=== PATIENT | male | born 1990 | race Caucasian/White ===

== ENCOUNTER 2019-02-11 21:20 | Inpatient (IN) | payer OTHER ==
[~2019-02-11] VITALS: Ht 175.3 cm; Wt 54.5 kg
[2019-02-11] MEDS ORDERED: CEFUROXIME500 MG PO (21:31)
[2019-02-11] MEDS ORDERED: STERAPRED DS 1010 MG PO (21:31)
[2019-02-11] MEDS ORDERED: HYDROXYZINE HCL10 MG PO (21:32)
[2019-02-11] MEDS ORDERED: MEDROL4 MG PO (21:32)
[2019-02-11 22:52] LABS: HEMATOCRIT 47.5 % (42.0-54.0); HEMOGLOBIN 16.8 g/dL (13.5-17.5); MCH 30.7 pg (26.0-34.0); MCHC 35.4 g/dL (31.0-37.0); MCV 86.7 fL (80.0-100.0); MEAN PLATELET VOLUME 8.5 fL (7.4-10.4); PLATELET COUNT 295 10x3/uL (130-400); RBC 5.48 10x6/uL (4.20-6.10); RDW 14.4 % (11.5-14.5); WBC 28.3 10x3/uL (4.8-10.8)
[2019-02-11 23:06] LABS: ALBUMIN 3.6 g/dL (3.4-5.0); ALKALINE PHOSPHATASE 66 U/L (46-116); ALT (SGPT) 104 U/L (10-68); BILIRUBIN - TOTAL 0.44 mg/dL (0.2-1.3); C-REACTIVE PROTEIN 1.5 mg/dL (0.0-0.9); CALC OSMOLALITY 270 mosm/kg (275-300); CALCIUM 9.2 mg/dL (8.5-10.1); CARBON DIOXIDE 25.9 mmol/L (21.0-32.0); CHLORIDE - SERUM 100 mmol/L (98-107); CREATININE - SERUM 0.9 mg/dL (0.6-1.3); GLUCOSE 99 mg/dL (74-106); POTASSIUM - SERUM 4.5 mmol/L (3.5-5.1); PROTEIN - SERUM 7.7 g/dL (6.4-8.2); SODIUM 136 mmol/L (136-145); UREA NITROGEN 11 mg/dL (7-18); eGFR NON AFRICAN AMERICAN > 90 mL/min (90-120)
[2019-02-11 23:24] VITALS: BP 128/82; BMI 17.9
[2019-02-11 23:25] LABS: EOSINOPHILS 27 % (0-7); LYMPHOCYTES 12 % (15-50); MONOCYTES 4 % (2-11); NEUTROPHILS 54 % (40-80); PLATELET ESTIMATE NORMAL
--- NOTE | 2019-02-11 23:30 | NUR ---
RECIEVED REPORT FROM ANGEL GRIGGS RN. PT ARRIVED ON WHEELCHAIR. AAOX4, 20G R.A.C NS BOLUS INFUSING. RASH ON PT FACE, ARM, TORSO, AND LEGS. INITIAL VS, BP128/82, HR 98, SPO2 99, R 20, T 98.1. PT IS A GOOD HISTORIAN. INITIAL ASSESSMENT COMPLETED. MOUTH MOISTURIZER PROVIDED PER PT REQUEST. PT CURRENTLY RESTING IN BED. DENIES ANY FURTHER NEEDS AT THIS TIME. WILL CPOC. CL IN REACH, BED IN LOW, SR UP X2.
[2019-02-11 23:53] LABS: ERYTHROCYTE SEDIMENTATION RATE 48 mm/hr (0-15)
[2019-02-11 23:55] VITALS: BP 116/85
[2019-02-12 03:25] VITALS: BP 120/61
[2019-02-12 09:00] VITALS: BP 115/61
[2019-02-12 12:10] VITALS: BMI 17.8
[2019-02-12 12:25] VITALS: BP 112/67
[2019-02-12 15:56] VITALS: Ht 175.3 cm; Wt 54.5 kg
[2019-02-12 18:04] VITALS: BP 93/60
[2019-02-12 20:00] VITALS: BP 119/67
[2019-02-13] VITALS: BP 129/68
[2019-02-13 04:00] VITALS: BP 120/64
--- NOTE | 2019-02-13 04:29 | NUR ---
I have reviewed this patient and I concur with the Shift Assessment completed by the Licensed Practical Nurse today this shift.
[2019-02-13 06:38] LABS: HEMATOCRIT 43.5 % (42.0-54.0); HEMOGLOBIN 15.3 g/dL (13.5-17.5); MCH 30.1 pg (26.0-34.0); MCHC 35.2 g/dL (31.0-37.0); MCV 85.5 fL (80.0-100.0); MEAN PLATELET VOLUME 8.5 fL (7.4-10.4); PLATELET COUNT 279 10x3/uL (130-400); RBC 5.09 10x6/uL (4.20-6.10); RDW 14.4 % (11.5-14.5); WBC 31.4 10x3/uL (4.8-10.8)
[2019-02-13 07:09] LABS: ALKALINE PHOSPHATASE 57 U/L (46-116); ALT (SGPT) 91 U/L (10-68); BILIRUBIN - TOTAL 0.29 mg/dL (0.2-1.3); CALC OSMOLALITY 275 mosm/kg (275-300); CALCIUM 8.5 mg/dL (8.5-10.1); CARBON DIOXIDE 26.7 mmol/L (21.0-32.0); CHLORIDE - SERUM 103 mmol/L (98-107); CREATININE - SERUM 0.8 mg/dL (0.6-1.3); GLUCOSE 108 mg/dL (74-106); POTASSIUM - SERUM 4.6 mmol/L (3.5-5.1); PROTEIN - SERUM 6.2 g/dL (6.4-8.2); SODIUM 138 mmol/L (136-145); UREA NITROGEN 10 mg/dL (7-18); eGFR NON AFRICAN AMERICAN > 90 mL/min (90-120)
[2019-02-13 07:47] VITALS: BP 117/66
[2019-02-13 08:49] LABS: EOSINOPHILS 28 % (0-7); LYMPHOCYTES 9 % (15-50); MONOCYTES 2 % (2-11); NEUTROPHILS 54 % (40-80); PLATELET ESTIMATE NORMAL
[2019-02-13 08:51] LABS: CRENATED CELLS OCC; ROULEAUX OCC
[2019-02-13 12:18] VITALS: BP 110/59
--- NOTE | 2019-02-13 19:10 | NUR ---
SITTING UP IN ROOM NEAR THE WINDOW. DENIES NEEDS AT THIS TIME LCTA PT ALERT AND ABLE TO MOVE AROUND ROOM IV SL ...BED IS LOCKED I REMINDED PT OF CALL LIGHT FOR NEEDS....REDENED SKIN ON CHEST ARMS AND BACK AND ALSO FACE...FACE IS ALSO SCABBED PT STATES THERE IS "NO REAL PAIN"
[2019-02-13 19:26] VITALS: BP 155/59
[2019-02-13 20:00] VITALS: BP 119/74
[2019-02-14] VITALS: BP 111/64
[2019-02-14 04:00] VITALS: BP 124/55
[2019-02-14 06:52] LABS: CALC OSMOLALITY 274 mosm/kg (275-300); CALCIUM 8.8 mg/dL (8.5-10.1); CARBON DIOXIDE 25.1 mmol/L (21.0-32.0); CHLORIDE - SERUM 101 mmol/L (98-107); CREATININE - SERUM 0.6 mg/dL (0.6-1.3); GLUCOSE 119 mg/dL (74-106); MAGNESIUM - SERUM 2.2 mg/dL (1.8-2.4); POTASSIUM - SERUM 4.5 mmol/L (3.5-5.1); SODIUM 137 mmol/L (136-145); eGFR NON AFRICAN AMERICAN > 90 mL/min (90-120)
[2019-02-14 06:53] LABS: BASOPHILS 0.4 % (0-2); EOSINOPHILS 31.1 % (0-7); HEMATOCRIT 43.6 % (42.0-54.0); HEMOGLOBIN 15.2 g/dL (13.5-17.5); IMMATURE GRANULOCYTES 1.1 % (0-5); LYMPHOCYTES 13.8 % (15-50); MCH 30.1 pg (26.0-34.0); MCHC 34.9 g/dL (31.0-37.0); MCV 86.3 fL (80.0-100.0); MEAN PLATELET VOLUME 8.9 fL (7.4-10.4); MONOCYTES 5.7 % (2-11); NEUTROPHILS 47.9 % (40-80); PLATELET COUNT 253 10x3/uL (130-400); RBC 5.05 10x6/uL (4.20-6.10); RDW 14.8 % (11.5-14.5); UREA NITROGEN 13 mg/dL (7-18); WBC 29.3 10x3/uL (4.8-10.8)
--- NOTE | 2019-02-14 08:00 | NUR ---
AM ROUNDS COMPLETED. INTRODUCED MYSELF TO PT PRIMARY RN FOR TODAYS SHIFT. PT IS A&O SITTING UP IN BED RESTING QUIETLY EATING BREAKFAST. PT HAS BODY RASH THAT LOOKS VERY PAINFUL BUT HE STATES HE IS FEELING "ALRIGHT" OVERALL. SHIFT ASSESSMENT COMPLETED. PT DENIES ANY CURRENT NEEDS AT THIS TIME. WILL CTM.
[2019-02-14 09:21] VITALS: BP 127/61
--- NOTE | 2019-02-14 11:27 | NUR ---
UNSURE DERMATOLOGY PLANS AND THE PROGRESS NOTE HAS BEEN LOST? EITHER WAY CANT BE FOUND, WAS GOING TO CALL THEM R/T PTS PAIN AND TIGHTNESS AND DRYNESS FROM [facility] TO SEE IF PT MAY BENEFIT FROM [facility]. DISCUSSED WITH AND SHE WILL TO DOC TO DOC FOR TRANSFER IF PT CAN BENEFIT FROM THEIR DER[facility] AND [facility]. DISCUSSED WITH PT AND HE JUST WANTS ANYTHING THAT WILL HELP. TOLD CASE MANAGEMENT AND WILL SEE FURTHER PLANNING.
[2019-02-14 12:07] VITALS: BP 145/68
--- NOTE | 2019-02-14 13:47 | NUR ---
REC'D CALL FROM [facility] AT [facility] AND THEIR INTERNAL MEDICINE DOCTOR WILL ACCEPT PT. WILL GET PAPERS FAXED OVER AND GET PROCESS STARTED.
[2019-02-14] MEDS ORDERED: KENALOG 0.1 % O15 GM TOPICAL (15:33)
[2019-02-14 15:57] VITALS: BP 132/77
--- NOTE | 2019-02-14 17:52 | NUR ---
STILL WAITING TO HEAR FROM [facility] FOR A BED. WILL CALL REPORT WHEN ROOM AVAILABLE.
[2019-02-14 20:00] VITALS: BP 133/76
--- NOTE | 2019-02-14 22:18 | NUR ---
CALLED REPORT TO [place] AT [facility] TO ROOM [id number]. PT VITALS STABLE AT THIS TIME. BED LOW CALL LIGHT WITHIN REACH. WILL CONTINUE TO MONITOR.
--- NOTE | 2019-02-14 22:30 | NUR ---
[facility] CALLED FOR TRANSPORT TO [facility]. ESTIMATED TIME IS TWO HOURS. WILL CONTINUE TO MONITOR.
--- NOTE | 2019-02-15 00:09 | NUR ---
PT RESTING IN CHAIR BESIDE BED. RR EVEN AND UNLABORED. NO S/S OF DISTRESS. BED LOW CALL LIGHT WITHIN REACH. WILL CONTINUE TO MONITOR.
--- NOTE | 2019-02-15 01:55 | NUR ---
PT LEFT FLOOR WITH EMS VIA [facility]. VITALS STABLE.
--- NOTE | 2019-02-15 08:10 | MORECARE ---
CASE MANAGEMENT DISCHARGE SUMMARY PATIENT: STEVE OTERO UNIT: [id number] ADM DATE: 02/12/19 AGE: 28 : [birth year] SEX: M ROOM/BED: D.2101 AUTHOR: GAMALIEL CARRERA PHYSICIAN: REFERRING PHYSICIAN: DEXTER MEDLEY MD DATE OF SERVICE: 02/15/19 Discharge Plan Patient Name: STEVE OTERO Facility: [facility]:[place] : 1990 Planned Disposition: Acute Care Hospital Anticipated Discharge Date: 02/15/19 Discharge Date: 02/15/2019 Expected LOS: 3 Initial Reviewer: [id number] Initial Review Date: 02/15/2019 Generated: 02/15/19 9:10 am Comments DCP- Discharge Planning Updated by [id number]: Ena Aragon on 02/14/19 11:[address] @ 1122, BEDSIDE NURSE, RAFAEL BECKFORD, CAME TO TALK TO ME ABOUT THE TRANSFER OF PATIENT TO [facility]. SHE STATED THAT SHE HAS TALKED TO CHASITY VASQUEZ APN WHO HAS AGREED WITH TRANSFER BUT REQUESTED THAT DR YE DO THE DOC TO DOC. @1125, MESSAGE SENT TO DR HOOD TO CONFIRM THAT SHE WOULD DO THE DOC TO DOC AND WHAT PHONE NUMBER SHE WOULD LIKE THE MD TO CALL. SHE AGREED AND GAVE PERMISSION TO GIVE HER CELL NUMBER. @ 1130, I SPOKE WITH JAZMINE YUEN RNJEWELRY DEPARTMENT SUPERVISOR FOR ADMINISTRATIVE APPROVAL FOR TRANSFER. INFORMATION TAKE AND I WILL WAIT FOR RETURN CALL. @ 1135, RECEIVED CALL BACK WITH [facility] APPROVAL FROM RAFAEL HAWK. @ 1147 CALL PLACED TO THE [facility] PHYSICIAN CALL CENTER ([phone]). REQUEST FOR TRANSFER DISCUSSED WITH INTAKE PERSON, GWYN AND THEN CALL WAS TRANSFERRED TO [facility]ESS NURSEVINEET RN. ALL INFORMATION TAKEN. SHE STATED THAT SHE WOULD TALK TO DR. STRINGER, INFECTIOUS DISEASE FIRST TO SEE IF HE WANTED TO ACCEPT THE PATIENT. SHE SAID THAT THE GEOGRAPHY INSTRUCTOR DOES NOT ADMIT, ONLY CONSULT, SO IF THE PATIENT NEEDED TO HAVE DERMATOLOGY, THEY WOULD HAVE TO CONSULT INTERNAL MEDICINE (NOT ABLE TO GIVE NAME BECAUSE IT MAY CHANGE BASED ON TIME THE CALL RECEIVED). SHE STATED THAT IF DERMATOLOGY WANTED TO TALK TO DR LIVERETTE, IT WOULD BE DR. VENCES CARE MANAGER CNA. ALL QUESTIONS ANSWERED. NO INFORMATION REQUESTED TO BE FAXED AT THIS TIME. SHE STATED IF THE PATIENT IS ACCEPTED, SHE WOULD CALL BACK FOR INFORMATION. ALSO GAVE THE FLOOR NUMBER IN CASE INFORMATION IS NEEDED FROM THE BEDSIDE NURSE. WILL AWAIT RETURN CALL. Patient Name: STEVE OTERO Page [id number] at 0810 All edits/amendments must be made on the electronic document DICTATION DATE: 02/15/19808 ELECTRIC FORK OPERATOR: AMOL 02/15/19808 RPT#: [id number] DC DATE:02/15/19 STATUS: DIS IN [facility] [address] [place] [address] END OF REPORT
--- NOTE | 2019-02-15 08:17 | MORECARE ---
CASE MANAGEMENT DISCHARGE SUMMARY PATIENT: STEVE OTERO UNIT: [id number] ADM DATE: 02/12/19 AGE: 28 : [birth year] SEX: M ROOM/BED: D.2101 AUTHOR: GAMALIEL CARRERA PHYSICIAN: REFERRING PHYSICIAN: DEXTER MEDLEY MD DATE OF SERVICE: 02/15/19 Discharge Plan Patient Name: STEVE OTERO Facility: [facility]:[place] : 1990 Planned Disposition: Acute Care Hospital Anticipated Discharge Date: 02/15/19 Discharge Date: 02/15/2019 Expected LOS: 3 Initial Reviewer: [email or web address] Initial Review Date: 02/15/2019 Generated: 02/15/19 9:17 am Comments DCP- Discharge Planning Updated by [id number]: Ena Aragon on 02/14/19 11:[address] @ 1122, BEDSIDE NURSE, RAFAEL BECKFORD, CAME TO TALK TO ME ABOUT THE TRANSFER OF PATIENT TO [facility]. SHE STATED THAT SHE HAS TALKED TO CHASITY VASQUEZ APN WHO HAS AGREED WITH TRANSFER BUT REQUESTED THAT DR YE DO THE DOC TO DOC. @1125, MESSAGE SENT TO DR HOOD TO CONFIRM THAT SHE WOULD DO THE DOC TO DOC AND WHAT PHONE NUMBER SHE WOULD LIKE THE MD TO CALL. SHE AGREED AND GAVE PERMISSION TO GIVE HER CELL NUMBER. @ 1130, I SPOKE WITH JAZMINE YUEN RNSECURITY GUARDS DISPATCHER FOR ADMINISTRATIVE APPROVAL FOR TRANSFER. INFORMATION TAKE AND I WILL WAIT FOR RETURN CALL. @ 1135, RECEIVED CALL BACK WITH [facility] APPROVAL FROM RAFAEL HAWK. @ 1147 CALL PLACED TO THE [facility] PHYSICIAN CALL CENTER ([phone]). REQUEST FOR TRANSFER DISCUSSED WITH INTAKE PERSON, GWYN AND THEN CALL WAS TRANSFERRED TO ACCESS NURSEVINEET RN. ALL INFORMATION TAKEN. SHE STATED THAT SHE WOULD TALK TO DR. STRINGER, INFECTIOUS DISEASE FIRST TO SEE IF HE WANTED TO ACCEPT THE PATIENT. SHE SAID THAT THE DIRECTOR ELECTRICAL ENGINEERING DOES NOT ADMIT, ONLY CONSULT, SO IF THE PATIENT NEEDED TO HAVE DERMATOLOGY, THEY WOULD HAVE TO CONSULT INTERNAL MEDICINE (NOT ABLE TO GIVE NAME BECAUSE IT MAY CHANGE BASED ON TIME THE CALL RECEIVED). SHE STATED THAT IF DERMATOLOGY WANTED TO TALK TO DR LIVERETTE, IT WOULD BE DR. VENCES FILE CLERK DATA ENTRY. ALL QUESTIONS ANSWERED. NO INFORMATION REQUESTED TO BE FAXED AT THIS TIME. SHE STATED IF THE PATIENT IS ACCEPTED, SHE WOULD CALL BACK FOR INFORMATION. ALSO GAVE THE FLOOR NUMBER IN CASE INFORMATION IS NEEDED FROM THE BEDSIDE NURSE. WILL AWAIT RETURN CALL. Last DP export: 02/15/19 7:10 am Patient Name: STEVE OTERO Page 11511 at 0817 All edits/amendments must be made on the electronic document DICTATION DATE: 02/15/19815 OIL GAS AND PIPE TESTER: DM 02/15/19815 RPT#: [id number] DC DATE:02/15/19 STATUS: DIS IN [facility] [address] [place] [address] END OF REPORT
== END 2019-02-15 01:56 | disposition short-term general hospital (02) | DRG 607 ==
LOC: D.ER 21:20 → D.M2 22:03 → OBSVTIME 22:03 → D.M2 22:03
PROVIDERS: Family Medicine; Family Medicine Adult Medicine; Student in an Organized Health Care Education/Training Program; ADMIT Internal Medicine Nephrology; ATTEND Internal Medicine Nephrology
DX: L27.0 Generalized skin eruption due to drugs and medicaments taken internally (principal); T36.4X5A Adverse effect of tetracyclines, initial encounter; D72.1 Eosinophilia; L55.1 Sunburn of second degree; Z72.0 Tobacco use